=== PATIENT | female | born 1970 | race Native Hawaiian/Other Pacific Islander ===

== ENCOUNTER 2023-03-29 22:53 | Inpatient (IN) | payer OTHER ==
[2023-03-30] VITALS (7 sets, daily range): BP systolic 117–155; BP diastolic 63–84
[2023-03-30] MEDS ORDERED: IBUP100S11 PO (01:57)
[2023-03-30] MEDS ORDERED: LISI40TA11 PO (01:57)
[2023-03-30] MEDS ORDERED: DEXTROSE (50%) 50ML SYRG IV PRN (02:00)
[2023-03-30] MEDS ORDERED: NITROGLYCERIN 0.4 MG SL TAB SL PRN (02:00)
[2023-03-30] MEDS ORDERED: ONDANSETRON HCL 4 MG/2 ML VIAL IV PRN (02:00)
[2023-03-30] MEDS ORDERED: MORPHINE SULFATE INJ 2 MG/ml SYRG IV PRN (02:00)
[2023-03-30 03:15] LABS: Basophils # (auto) 0 10 ^3/uL (0-0.2); Eosinophils # (auto) 0 10 ^3/uL (0-0.8); Hematocrit 38.5 % (36.0-46.0); Monocytes # (auto) 0.4 10 ^3/uL (0-1.3); Monocytes % (auto) 5.5 % (0.0-12.0); Neutrophils # (auto) 3.3 10 ^3/uL (1.6-8.6)
[2023-03-30 03:17] LABS: Basophils % (auto) 0.5 % (0.0-2.0); Lymphocytes # (auto) 3.1 10 ^3/uL (0.4-5.4); Lymphocytes % (auto) 45.5 % (10.0-50.0); Mean Corpuscular Hemoglobin 25.7 pg (28.0-32.0); Mean Corpuscular Hgb Conc. 33.7 g/dL (32.0-36.0); Mean Corpuscular Volume 76.4 fL (80.0-100.0); Neutrophils % (auto) 48.5 % (37.0-80.0); Nucleated Red Blood Cells % 0.2 %; Red Blood Cells 5.03 10^6/uL (4.0-5.20); White Blood Cell 6.9 10^3/uL (4.4-10.8)
[2023-03-30 03:34] LABS: Albumin 3.5 g/dL (3.4-5.0); BUN/Creatinine Ratio 18.3 (10.0-20.0); Potassium 3.9 mmol/L (3.5-5.1)
[2023-03-30 03:37] LABS: Bilirubin, Total 0.8 mg/dL (0.2-1.0); Total Protein 6.4 g/dL (6.4-8.2)
[2023-03-30 03:51] LABS: Urine Bacteria FEW /hpf (None Seen); Urine Blood Negative /uL (Negative); Urine WBC 14 /hpf (0 - 5)
[2023-03-30] MEDS: ACCU-CHEK COMFORT CURVE STRIP VI SCH ×4 (06:07→21:59)
[2023-03-30] MEDS: InsuLIN REG 1unit/0.01ml Soln (100units/ml) SC SCH ×4 (06:08→21:58)
[2023-03-30] MEDS ORDERED: METF-370 PO (06:28)
[2023-03-30] MEDS ORDERED: LOSA-69 PO (06:28)
[2023-03-30] MEDS ORDERED: ATOR10TA PO (06:28)
[2023-03-30] MEDS: cefTRIAXone 1GM/50ML D5W 50 ML IV SCH (06:43)
[2023-03-30] MEDS: ASPirin 81 mg TAB PO SCH (09:36)
[2023-03-30] MEDS: PANTOPRAZOLE 40 MG TAB PO SCH (09:37)
[2023-03-30] MEDS: LOSARTAN POTASSIUM 50 MG TAB PO SCH (09:37)
[2023-03-30] MEDS ORDERED: ATORVASTATIN 20 MG TAB PO SCH ×2 (22:00)
[2023-03-31 05:00] VITALS: BP 123/74
[2023-03-31] MEDS: cefTRIAXone 1GM/50ML D5W 50 ML IV SCH (06:39)
[2023-03-31] MEDS: InsuLIN REG 1unit/0.01ml Soln (100units/ml) SC SCH ×2 (06:42→11:30)
[2023-03-31] MEDS: ACCU-CHEK COMFORT CURVE STRIP VI SCH ×2 (06:42→11:30)
[2023-03-31] MEDS ORDERED: ADENOSINE 67 MG in GIVE UN-DILUTED 0 ML IV ONE (07:30)
[2023-03-31 08:49] VITALS: BP 132/75
[2023-03-31] MEDS: ASPirin 81 mg TAB PO SCH (11:03)
[2023-03-31] MEDS: PANTOPRAZOLE 40 MG TAB PO SCH (11:03)
[2023-03-31] MEDS: LOSARTAN POTASSIUM 50 MG TAB PO SCH (11:04)
[2023-03-31 13:00] VITALS: BP 128/71
[2023-03-31 14:30] VITALS: BP 128/71
== END 2023-03-31 15:25 | disposition home or self-care (01) | DRG 206 ==
LOC: TELE-CENTR 22:53
PROVIDERS: ADMIT Internal Medicine; ATTEND Internal Medicine
DX: M94.0 Chondrocostal junction syndrome [Tietze] (principal); N39.0 Urinary tract infection, site not specified; I25.10 Atherosclerotic heart disease of native coronary artery without angina pectoris; E11.9 Type 2 diabetes mellitus without complications; E78.5 Hyperlipidemia, unspecified; I10 Essential (primary) hypertension; K21.9 Gastro-esophageal reflux disease without esophagitis; Z82.49 Family history of ischemic heart disease and other diseases of the circulatory system; R07.81 Pleurodynia
CPT/HCPCS: 36415; 71045; 78452; 80053; 80061; 81001; 82962; 83036; 83735; 84443; 84484; 85025; 85379; 93005; 93017; 93306; G0378; J0153; J0696; J1815